=== PATIENT | female | born 1990 | race African-American/Black ===

== ENCOUNTER 2016-11-08 23:17 | Emergency (ER) | payer MEDICAID ==
[~2016-11-08] VITALS: Ht 157.5 cm; Wt 56.0 kg
[2016-11-09] MEDS ORDERED: KETOROLAC 60MG/2ML VIAL IM ONE (02:45)
[2016-11-09 04:45] LABS: CLARITY URINE CLOUDY (CLEAR); COLOR URINE YELLOW (YELLOW); GLUCOSE URINE NEGATIVE (NEGATIVE); KETONES URINE TRACE (NEGATIVE); LEUKOCYTE ESTERASE URINE 1+ (NEGATIVE); NITRITE URINE NEGATIVE (NEGATIVE); OCCULT BLOOD URINE TRACE (NEGATIVE); PROTEIN URINE NEGATIVE (NEGATIVE); SPECIFIC GRAVITY URINE 1.032 (1.005-1.030)
[2016-11-09 05:15] LABS: BACTERIA URINE 1+; RBC URINE 0-2 /hpf (0-2); SQUAMOUS EPITHELIAL CELL URINE FEW /lpf (RARE/1+)
[2016-11-09 05:42] VITALS: BP 112/67
== END 2016-11-09 06:15 | disposition home or self-care (01) ==
LOC: ER 23:18
DX: N10 Acute pyelonephritis (principal); M25.511 Pain in right shoulder
CPT/HCPCS: 81001; 81025; 96372; 99283; J1885

== ENCOUNTER 2017-08-23 03:46 | Emergency (ER) | payer MEDICAID ==
[~2017-08-23] VITALS: Ht 157.5 cm; Wt 58.8 kg
[2017-08-23 03:50] VITALS: BP 99/66
== END 2017-08-23 05:47 | disposition left against medical advice (07) ==
LOC: ER 03:46
DX: R10.9 Unspecified abdominal pain (principal); M54.9 Dorsalgia, unspecified; Z53.21 Procedure and treatment not carried out due to patient leaving prior to being seen by health care provider

== ENCOUNTER 2017-12-20 00:32 | Emergency (ER) | payer MEDICAID ==
[~2017-12-20] VITALS: Ht 157.5 cm; Wt 58.0 kg
[2017-12-20] MEDS ORDERED: KETOROLAC 60MG/2ML VIAL IM ONE (06:30)
[2017-12-20 06:58] VITALS: BP 103/65
== END 2017-12-20 07:00 | disposition home or self-care (01) ==
LOC: ER 00:32
DX: S29.012A Strain of muscle and tendon of back wall of thorax, initial encounter (principal); X58.XXXA Exposure to other specified factors, initial encounter; Y93.89 Activity, other specified; Y92.89 Other specified places as the place of occurrence of the external cause; M25.512 Pain in left shoulder; R03.0 Elevated blood-pressure reading, without diagnosis of hypertension
CPT/HCPCS: 96372; 99283; J1885; Z7610